=== PATIENT | female | born 1950 | race Caucasian/White ===

== ENCOUNTER 2023-07-25 18:53 | Inpatient (IN) | payer SELFPAY ==
[2023-07-25 14:31] VITALS: BP 160/76
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
[2023-07-25] MEDS: TYLENOL 1000 MG PO (15:23)
[2023-07-25] MEDS: ULTRAM 50 MG PO (15:24)
[2023-07-25 16:40] VITALS: BP 122/64
[2023-07-25] MEDS: ATIVAN 0.5 MG IV (16:45)
[2023-07-25 16:47] LABS: % Basophils 0.3 % (0-2); % Eosinophils 0.3 % (0-6); % Immature Granulocytes 0.8 % (0-0.5); % Lymphocytes 7.5 % (20.5-51.1); % Monocytes 4.9 % (1.7-9.3); % Neutrophils 86.2 % (42.2-75.2); Absolute Immature Granulocytes 0.1 10^3/uL (0-0.05); Absolute Lymphocytes 1.1 10^3/uL (1.2-3.4); Absolute Monocytes 0.7 10^3/uL (0.1-0.6); Absolute Neutrophils 12.6 10^3/uL (1.4-6.5); Hematocrit 36.7 % (37.0-47.0); Hemoglobin 12.6 g/dL (12.0-16.0); Mean Corp Hgb Conc. 34.3 g/dL (33.0-37.0); Mean Corpuscular Hgb 29.2 pg (27.0-31.0); Mean Platelet Volume 10.7 fL (7.4-10.4); Nucleated Red Blood Cells % 0 %; Platelet Count 216 10^3/uL (130-400); Red Blood Cell Count 4.32 10^6/uL (4.20-5.40); Red Cell Dist. Width 12.7 % (11.5-14.5); White Blood Cell Count 14.6 10^3/uL (4.8-10.8)
[2023-07-25 17:00] LABS: Blood Urea Nitrogen 21 mg/dl (7-17); Calcium 9.5 mg/dl (8.4-10.2); Carbon Dioxide 24 mmol/L (22-30); Chloride 103 mmol/L (98-107); Glucose 145 mg/dl (70-99); Potassium 3.7 mmol/L (3.5-5.1); Sodium 136 mmol/L (135-145); eGFR > 60.00
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
[2023-07-25 19:44] VITALS: BP 121/55
[2023-07-25 20:00] LABS: % Basophils 0.2 % (0-2); % Eosinophils 0.1 % (0-6); % Immature Granulocytes 0.6 % (0-0.5); % Lymphocytes 3.8 % (20.5-51.1); % Monocytes 4.9 % (1.7-9.3); % Neutrophils 90.4 % (42.2-75.2); Absolute Immature Granulocytes 0.1 10^3/uL (0-0.05); Absolute Lymphocytes 0.5 10^3/uL (1.2-3.4); Absolute Monocytes 0.7 10^3/uL (0.1-0.6); Hematocrit 34.2 % (37.0-47.0); Hemoglobin 11.8 g/dL (12.0-16.0); Mean Corp Hgb Conc. 34.5 g/dL (33.0-37.0); Mean Corpuscular Hgb 28.9 pg (27.0-31.0); Mean Corpuscular Volume 83.8 fL (81.0-99.0); Nucleated Red Blood Cells % 0 %; Platelet Count 178 10^3/uL (130-400); Red Blood Cell Count 4.08 10^6/uL (4.20-5.40); Red Cell Dist. Width 12.8 % (11.5-14.5); White Blood Cell Count 14.4 10^3/uL (4.8-10.8)
[2023-07-25 20:13] VITALS: BMI 24.2
[2023-07-25] MEDS: COMPAZINE 5 MG IV (20:57)
[2023-07-25] MEDS: HEPARIN 5000 UNITS SC (20:58)
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
[2023-07-25] MEDS: LIPITOR 20 MG PO (21:42)
[2023-07-25 23:10] VITALS: BP 112/58
[2023-07-25] MEDS: MORPHINE SULFATE 2 MG IV (23:52)
[2023-07-26 00:26] VITALS: BP 101/53
[2023-07-26 05:01] LABS: Urine Albumin Trace (Neg - Trace); Urine Bilirubin 1+ (Negative); Urine Character Clear (Clear); Urine Color Yellow; Urine Glucose Negative (Negative); Urine Ketone 2+ (Negative); Urine Leukocyte Trace (Negative); Urine Nitrite Negative (Negative); Urine Occult Blood Negative (Negative); Urine Specific Gravity 1.025 (<1.030); Urine Urobilinogen 1+ (Neg - 1+)
[2023-07-26 05:41] LABS: ALT (SGPT) 50 U/L (0-35); AST (SGOT) 59 U/L (14-36); Albumin 3.9 g/dl (3.5-5.0); Alkaline Phosphatase 117 U/L (38-126); Blood Urea Nitrogen 21 mg/dl (7-17); Calcium 8.6 mg/dl (8.4-10.2); Carbon Dioxide 26 mmol/L (22-30); Chloride 102 mmol/L (98-107); Estimated Creatinine Clearance 56 ml/min; Glucose 152 mg/dl (70-99); Potassium 4.2 mmol/L (3.5-5.1); Sodium 134 mmol/L (135-145); Total Bilirubin 0.9 mg/dl (0.2-1.3); Total Protein 6.2 g/dl (6.3-8.2); eGFR > 60.00
[2023-07-26 06:17] LABS: Urine Mucus Many
[2023-07-26 06:18] LABS: Urine Bacteria Few (Negative); Urine Red Blood Cell 0-2 /HPF (0-2)
[2023-07-26 07:45] VITALS: BP 123/59
[2023-07-26] MEDS: MORPHINE SULFATE 2 MG IV ×2 (08:02→13:15)
[2023-07-26] MEDS: THERAGRAN PO ×2 (08:02→08:08)
[2023-07-26] MEDS: HEPARIN 5000 UNITS SC ×2 (08:03→22:05)
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
[2023-07-26] MEDS: ULTRAM 50 MG PO ×2 (09:47→22:14)
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
[2023-07-26] MEDS: ASPIRIN 325 MG PO (13:18)
[2023-07-26 15:27] VITALS: BP 123/57
[2023-07-26] MEDS: LIPITOR 20 MG PO (22:05)
[2023-07-26] MEDS: ASPIRIN PO (22:12)
[2023-07-26 23:06] VITALS: BP 130/51
[2023-07-27] MEDS: ULTRAM 50 MG PO ×3 (04:31→23:51)
[2023-07-27 06:14] LABS: % Basophils 0.8 % (0-2); % Eosinophils 4.2 % (0-6); % Immature Granulocytes 0.5 % (0-0.5); % Monocytes 5.6 % (1.7-9.3); % Neutrophils 75.9 % (42.2-75.2); Absolute Basophils 0.1 10^3/uL (0-0.2); Absolute Eosinophils 0.3 10^3/uL (0-0.7); Absolute Lymphocytes 0.8 10^3/uL (1.2-3.4); Absolute Monocytes 0.4 10^3/uL (0.1-0.6); Absolute Neutrophils 4.7 10^3/uL (1.4-6.5); Hematocrit 27.7 % (37.0-47.0); Hemoglobin 9.5 g/dL (12.0-16.0); Mean Corp Hgb Conc. 34.3 g/dL (33.0-37.0); Mean Corpuscular Hgb 28.8 pg (27.0-31.0); Mean Corpuscular Volume 83.9 fL (81.0-99.0); Mean Platelet Volume 10.6 fL (7.4-10.4); Nucleated Red Blood Cells % 0 %; Platelet Count 115 10^3/uL (130-400); White Blood Cell Count 6.2 10^3/uL (4.8-10.8)
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
[2023-07-27 08:00] VITALS: BP 106/63
[2023-07-27] MEDS: HEPARIN 5000 UNITS SC ×2 (08:37→19:48)
[2023-07-27] MEDS: THERAGRAN PO (08:37)
[2023-07-27] MEDS: ASPIRIN 325 MG PO ×2 (08:37→19:48)
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
[2023-07-27] MEDS: MIRALAX 17 GRAMS PO (10:03)
[2023-07-27 13:49] VITALS: BP 114/66; PULSE 82; O2SAT 94
[2023-07-27 15:00] VITALS: BP 107/59
[2023-07-27] MEDS: PEPCID 20 MG PO (21:37)
[2023-07-27] MEDS: LIPITOR 20 MG PO (21:37)
[2023-07-27 23:25] VITALS: BP 125/59
[2023-07-28 07:42] VITALS: BP 116/61
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
[2023-07-28] MEDS: THERAGRAN PO (10:34)
[2023-07-28] MEDS: MIRALAX 17 GRAMS PO (10:37)
[2023-07-28] MEDS: ASPIRIN 325 MG PO ×2 (10:38→20:37)
[2023-07-28] MEDS: HEPARIN 5000 UNITS SC ×2 (10:38→20:36)
[2023-07-28] MEDS: TYLENOL 650 MG PO (10:38)
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
[2023-07-28 15:09] VITALS: BP 123/47
[2023-07-28 16:11] VITALS: BP 135/65; PULSE 84
[2023-07-28 16:27] VITALS: BP 135/65; PULSE 85; O2SAT 98
[2023-07-28] MEDS: FERRLECIT 110 MG IV (16:49)
[2023-07-28 23:00] VITALS: BP 141/71
[2023-07-28] MEDS: LIPITOR 20 MG PO (23:13)
[2023-07-28] MEDS: ULTRAM 50 MG PO (23:13)
[2023-07-28] MEDS: PEPCID 20 MG PO (23:14)
[2023-07-29 07:35] VITALS: BP 132/73
[2023-07-29] MEDS: THERAGRAN 1 TABLET PO (08:55)
[2023-07-29] MEDS: HEPARIN 5000 UNITS SC ×2 (08:55→20:25)
[2023-07-29] MEDS: MIRALAX 17 GRAMS PO (08:55)
[2023-07-29] MEDS: ASPIRIN 325 MG PO ×2 (08:55→20:25)
[2023-07-29] MEDS: ULTRAM 50 MG PO ×3 (09:18→23:30)
[2023-07-29 10:40] VITALS: BP 111/94; BP 138/55; PULSE 74; O2SAT 100
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
[2023-07-29] MEDS: TYLENOL 650 MG PO (15:58)
[2023-07-29 16:43] VITALS: BP 138/87
[2023-07-29] MEDS: PEPCID 20 MG PO (22:06)
[2023-07-29] MEDS: LIPITOR 20 MG PO (22:06)
[2023-07-29 23:04] VITALS: BP 135/73
[2023-07-30] MEDS: TYLENOL 650 MG PO ×2 (05:59→19:52)
[2023-07-30 06:33] LABS: % Basophils 1.1 % (0-2); % Eosinophils 5.5 % (0-6); % Immature Granulocytes 0.5 % (0-0.5); % Lymphocytes 30.8 % (20.5-51.1); % Monocytes 11.5 % (1.7-9.3); % Neutrophils 50.6 % (42.2-75.2); Absolute Basophils 0.1 10^3/uL (0-0.2); Absolute Eosinophils 0.3 10^3/uL (0-0.7); Absolute Lymphocytes 1.7 10^3/uL (1.2-3.4); Absolute Monocytes 0.7 10^3/uL (0.1-0.6); Absolute Neutrophils 2.9 10^3/uL (1.4-6.5); Hemoglobin 9.8 g/dL (12.0-16.0); Mean Corp Hgb Conc. 33.8 g/dL (33.0-37.0); Mean Corpuscular Hgb 29.3 pg (27.0-31.0); Mean Corpuscular Volume 86.6 fL (81.0-99.0); Mean Platelet Volume 10.4 fL (7.4-10.4); Nucleated Red Blood Cells % 0 %; Platelet Count 179 10^3/uL (130-400); Red Blood Cell Count 3.35 10^6/uL (4.20-5.40); Red Cell Dist. Width 12.8 % (11.5-14.5); White Blood Cell Count 5.7 10^3/uL (4.8-10.8)
[2023-07-30 07:50] VITALS: BP 133/72
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
[2023-07-30] MEDS: MIRALAX 17 GRAMS PO (08:41)
[2023-07-30] MEDS: ASPIRIN 325 MG PO ×2 (08:43→19:53)
[2023-07-30] MEDS: HEPARIN 5000 UNITS SC ×2 (08:43→19:52)
[2023-07-30] MEDS: THERAGRAN 1 TABLET PO (08:43)
[2023-07-30] MEDS: COMPAZINE 5 MG IV (10:00)
[2023-07-30] MEDS: LIDOCAINE 4% PATCH 1 PATCH TOPICAL (10:00)
[2023-07-30 11:38] VITALS: BP 144/67; PULSE 82; O2SAT 98
[2023-07-30 12:00] VITALS: BP 144/67; PULSE 78; O2SAT 98
[2023-07-30 15:27] VITALS: BP 148/69
[2023-07-30] MEDS: PEPCID 20 MG PO (21:31)
[2023-07-30] MEDS: LIPITOR 20 MG PO (21:32)
[2023-07-30 23:30] VITALS: BP 153/60
[2023-07-31] MEDS: TYLENOL 650 MG PO ×3 (00:07→21:58)
[2023-07-31 07:50] VITALS: BP 141/74
[2023-07-31] MEDS: HEPARIN 5000 UNITS SC ×2 (07:56→20:25)
[2023-07-31] MEDS: ASPIRIN 325 MG PO ×2 (07:56→20:24)
[2023-07-31] MEDS: LIDOCAINE 4% PATCH 1 PATCH TOPICAL (07:56)
[2023-07-31] MEDS: MIRALAX PO (07:56)
[2023-07-31] MEDS: THERAGRAN 1 TABLET PO (07:56)
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
[2023-07-31 09:55] VITALS: BP 139/68; PULSE 89; O2SAT 98
[2023-07-31 10:21] VITALS: BP 139/68; PULSE 88; O2SAT 98
--- NOTE | 2023-07-31 13:31 | CM ---
Addendum entered by Mis Kraft RN 07/31/23 16:18:
IMM signed and placed on the chart.
Original Note:
Reviewed the chart notes. [facility] will have a bed tomorrow. [facility] requested an auth from [employer].
spoke with Lolly at [employer] ([phone]) they do not provide pre-auth to facilities. The facilities must bill the insurance company directly to:
[employer]
[address]
[phone]
Information provided to [facility] ([employer] cost estimator today) through [facility].
Plan: Discharge to [facility] tomorrow.
--- NOTE | 2023-07-31 14:00 | WOUNDNOTE ---
L THIGH (MEDIAL LOWER)(calf toward R side of photo)
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
[2023-07-31 15:03] VITALS: BP 146/64
[2023-07-31] MEDS: PEPCID 20 MG PO (20:24)
[2023-07-31] MEDS: LIPITOR 20 MG PO (20:25)
[2023-07-31 23:30] VITALS: BP 145/65
[2023-08-01 07:50] VITALS: BP 146/62
[2023-08-01] MEDS: ASPIRIN 325 MG PO (08:33)
[2023-08-01] MEDS: THERAGRAN 1 TABLET PO (08:33)
[2023-08-01] MEDS: HEPARIN 5000 UNITS SC (08:33)
[2023-08-01] MEDS: LIDOCAINE 4% PATCH 1 PATCH TOPICAL (08:33)
[2023-08-01] MEDS: MIRALAX PO (08:37)
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
--- NOTE | 2023-08-01 09:21 | W.DS.TRANS ---
DC Summary - [place]
-
Discharge Instructions:
Discharge Diagnosis/Procedures Bilateral ankle fractures
Diet Regular
Activity With assistance,Do not bear weight R leg,Do not
bear weight L leg
Driving Restrictions No driving
Bathing Restrictions None
Blood Work CBC, BMP in 1 week
Instructions:
Stand-Alone Forms:
Changes to Home Medications: Yes
Discharge Medications:
DC Medications w/original date entered in [facility]
atorvastatin 20 mg tablet 20 mg PO HS High Cholesterol 07/25/23
multivitamin 1 tab PO DAILY Supplement 07/25/23
Remove Patch [Remove Lidocaine Patch] 1 patch REMOVE DAILY@1999 ##0 08/01/23
acetaminophen 325 mg tablet 650 mg PO Q4HPRN PRN mild pain/aches #0 tabs 08/01/23
aspirin 325 mg tablet 325 mg PO BID #60 tabs 08/01/23
famotidine 20 mg tablet 20 mg PO HS #0 tabs 08/01/23
lidocaine 4 % topical patch 1 patch topical DAILY #30 ea 08/01/23
polyethylene glycol 3350 17 gram oral powder packet (HealthyLax) 17 g PO DAILY #100 ea 08/01/23
Home Medication Changes
Aspirin bid with food
Lidocaine patch daily
Pepcid at bedtime (while on ASA)
Miralax daily
Pending Results: No
--- NOTE | 2023-08-01 11:08 | CM ---
Reviewed the chart notes and spoke with the patient at the bedside. Provide to Jennifer at [facility] insurance policy number for [employer] ([id number]). Patient accepted at [facility] today.
Call report to: [phone]
Fax report to: [phone]
Medical necessity and transport forms on chart.
[2023-08-01] MEDS: TYLENOL 650 MG PO (11:25)
[2023-08-01 11:44] LABS: COVID-19 Antigen Negative (Negative)
[2023-08-01 15:16] VITALS: BP 144/51
== END 2023-08-01 16:38 | DRG 563 ==
LOC: 2 SOUTH 18:53
PROVIDERS: Physician Assistant; ADMITTING PHYSICIAN Internal Medicine; CONSULT PHYSICIAN Orthopaedic Surgery; EMERGENCY PHYSICIAN Emergency Medicine; FAMILY PHYSICIAN Nurse Practitioner
DX: S82.842A Displaced bimalleolar fracture of left lower leg, initial encounter for closed fracture (principal); S32.591A Other specified fracture of right pubis, initial encounter for closed fracture; D62 Acute posthemorrhagic anemia; S82.851A Displaced trimalleolar fracture of right lower leg, initial encounter for closed fracture; S92.311A Displaced fracture of first metatarsal bone, right foot, initial encounter for closed fracture; S92.354A Nondisplaced fracture of fifth metatarsal bone, right foot, initial encounter for closed fracture; S82.52XA Displaced fracture of medial malleolus of left tibia, initial encounter for closed fracture; S82.62XA Displaced fracture of lateral malleolus of left fibula, initial encounter for closed fracture; V03.10XA Pedestrian on foot injured in collision with car, pick-up truck or van in traffic accident, initial encounter; Y93.01 Activity, walking, marching and hiking; Y92.481 Parking lot as the place of occurrence of the external cause; E78.00 Pure hypercholesterolemia, unspecified; D72.829 Elevated white blood cell count, unspecified; F41.9 Anxiety disorder, unspecified; Z88.5 Allergy status to narcotic agent; Z11.52 Encounter for screening for COVID-19
CPT/HCPCS: 29505; 29515; 71046; 72190; 73564; 73610; 73630; 73700; 80048; 80053; 81003; 81015; 85025; 87811; 96374; 97110; 97163; 97166; 97530; 97535; 99285; J2916

== ENCOUNTER → 2025-01-22 14:04 | Outpatient (REF) | payer MEDICARE, SELFPAY | LOC: HWWDC 14:04 | PROVIDERS: ATTENDING PHYSICIAN Nurse Practitioner | DX: Z12.31 Encounter for screening mammogram for malignant neoplasm of breast (principal) | CPT/HCPCS: 77063; 77067 ==